=== PATIENT | female | born 1985 | race African-American/Black ===

== ENCOUNTER 2021-10-26 15:44 | Emergency (ER) | payer MEDICARE, MEDICAID ==
[~2021-10-26] VITALS: Ht 175.3 cm; Wt 90.9 kg
[~2021-10-26 15:44] MED LIST: DULO30CA89; WELBUTRIN
[2021-10-26 16:44] VITALS: BP 118/67
[2021-10-26 17:33] LABS: COVID AG,FIA SOURCE NASOPHARYNGEAL
== END 2021-10-26 19:17 | disposition home or self-care (01) ==
LOC: EMS 15:47
DX: U07.1 COVID-19 (principal); F32.9 Major depressive disorder, single episode, unspecified; Z88.5 Allergy status to narcotic agent
CPT/HCPCS: 87426; 99283; U0003